=== PATIENT | female | born 1955 | race Caucasian/White ===

== ENCOUNTER 2018-05-20 11:17 | Emergency (ER) | payer BC ==
[2018-05-20 11:40] VITALS: BP 152/84
--- NOTE | 2018-05-20 13:07 | EDM.PDOC ---
ED HPI GENERAL MEDICAL PROBLEM - General Chief Complaint: Back Pain or Injury Stated Complaint: R HIP AND THIGH PAIN Time Seen by Provider: 05/20/18 11:46 Source of Information: Reports: Patient, Old Records, RN Notes Reviewed History Limitations: Reports: No Limitations - History of Present Illness INITIAL COMMENTS - FREE TEXT/NARRATIVE: Patient is a 62 year old female who presents to the ED for the evaluation of right hip/thigh pain. She states that this has been present since March of 2018. She denies any sort of trauma to the right hip. She was seen in [facility] today for a pre-op carpal tunnel surgery workup but was deferred to ED due to increasing hip pain. She states that she is able to bear weight and walk , but this is painful to do so. She notes that she has chronic lower back problems for which she receives dexamethasone shots, the last she received was . This did help the pain in the back, but has not helped much for the hip pain. She has been taking 2 tabs of tylenol, the last she took of this was at 8AM this morning. She states that this does help as well, but only for a few hours. She has used some hydrocodone she has had from previous surgeries, and this provides limited relief as well. She would rate her pain at a 10/10 today. She does have a walker at home and does use a cane for ambulation as well. She has extensive musculoskeletal surgery history that includes 3 separate back surgeries and knee replacement. She notes that most of the pain is her right hip joint, but does have some pain that radiates down her right thigh. She notes this to be sharp in nature. Pt is under the care of Dr. Jenni Us. Treatments CLINIC CLERK: Reports: Other (see below) Other Treatments CLINIC CLERK: tylneol about 0800 x 2 tabs ES Right Hip Pain Score (Numeric/FACES): 10 - Related Data Allergies Allergy/AdvReac Type Severity Reaction Status Date / Time atorvastatin calcium Allergy Intermediate Rash Verified 09/09/15 14:35 [From Lipitor] furosemide [From Lasix] Allergy Intermediate Rash Verified 09/09/15 14:35 simvastatin Allergy Intermediate Rash Verified 09/09/15 14:35 triamcinolone Allergy Intermediate Rash Verified 09/09/15 14:35 hydrochlorothiazide Allergy Mild Rash Verified 09/09/15 14:35 cat dander Allergy Bronchospas Verified 11/09/17 11:53 ms garcianone Allergy Rash Verified 11/09/17 11:55 Home Meds: Home Meds Albuterol Sulfate [Proair Respiclick] 90 mcg IH Q6H PRN 09/05/15 [History] Levothyroxine Sodium 88 mcg PO ACBREAKFAST 09/05/15 [History] Omeprazole 20 mg PO DAILY 09/05/15 [History] amLODIPine Besylate [Amlodipine Besylate] 10 mg PO DAILY 09/05/15 [History] Betamethasone Dipropionate 15 gm TP BID PRN 09/06/15 [History] Mometasone Furoate 15 gm TP BID PRN 09/06/15 [History] Cyclobenzaprine [Flexeril] 10 mg PO TID PRN #40 tablet 09/11/15 [Rx] Acetaminophen [Tylenol Extra Strength] 1,000 mg PO BID 05/20/18 [History] Acetaminophen/HYDROcodone [Seaford 325-5 MG] 1 tab PO Q6H PRN #28 tablet 05/20/18 [Rx] Betamethasone/Propylene Glyc [Diprolene AF 0.05%] 1 applicful TOP ASDIRECTED PRN 05/20/18 [History] Ezetimibe [Zetia] 10 mg PO BEDTIME 05/20/18 [History] Fluticasone/Salmeterol [Advair 100-50] 1 puff INH BID 05/20/18 [History] Irbesartan [Avapro] 150 mg PO DAILY 05/20/18 [History] Loperamide HCl [Imodium A-D] 2 mg PO ASDIRECTED 05/20/18 [History] Silver Sulfadiazine [Silvadene 1% Cream 20 GM] 1 applic TOP BID 05/20/18 [ History] predniSONE 20 mg PO ASDIRECTED #15 tab 05/20/18 [Rx] tiZANidine HCl [Zanaflex] 2 mg PO BEDTIME 05/20/18 [History] Past Medical History Cardiovascular History: Reports: High Cholesterol, Hypertension Respiratory History: Reports: Asthma, Sleep Apnea Gastrointestinal History: Reports: GERD Musculoskeletal History: Reports: Back Pain, Chronic Neurological History: Reports: Neuropathy, Peripheral, Other (See Below) Other Neuro History: parasthesia Endocrine/Metabolic History: Reports: Hypothyroidism, Osteopenia, Vitamin D Deficiency Hematologic History: Reports: Other (See Below) Other Hematologic History: leukocytosis Dermatologic History: Reports: Eczema - Past Surgical History Neurological Surgical History: Reports: C-Spine, Lumbar Spine, Spinal Fusion Musculoskeletal Surgical History: Reports: Carpal Tunnel, Knee Replacement, Other (See Below) Other Musculoskeletal Surgeries/Procedures:: back surgery several times; goes to pain clinic for injections to her back Social & Family History - Tobacco Use Smoking Status *Q: Never Smoker - Caffeine Use Caffeine Use: Reports: Soda ED ROS GENERAL - Review of Systems Review Of Systems: See Below Constitutional: Denies: Fever, Chills, Weakness, Fatigue HEENT: Reports: No Symptoms Respiratory: Reports: No Symptoms Cardiovascular: Reports: No Symptoms Endocrine: Reports: No Symptoms GI/Abdominal: Reports: No Symptoms : Reports: No Symptoms Musculoskeletal: Reports: Leg Pain (right anterior thigh), Joint Pain (right hip ). Denies: Foot Pain, Muscle Pain, Muscle Stiffness Skin: Reports: No Symptoms Neurological: Reports: Numbness (to bilateral feet, due to prior surgeries). Denies: Tingling, Difficulty Walking, Gait Disturbance Psychiatric: Reports: No Symptoms Hematologic/Lymphatic: Reports: No Symptoms Immunologic: Reports: No Symptoms ED EXAM,LOWER BACK PAIN/INJURY - Physical Exam Exam: See Below Exam Limited By: No Limitations General Appearance: Alert, WD/WN, Mild Distress (pt appears to be in mild discomfort due to hip pain, she does wince with the slightest movement.) Ears: Normal External Exam Nose: Normal Inspection Throat/Mouth: Normal Inspection, Normal Oropharynx Head: Atraumatic, Normocephalic Neck: Normal Inspection Respiratory/Chest: No Respiratory Distress, Lungs Clear, Normal Breath Sounds, No Accessory Muscle Use, Chest Non-Tender Cardiovascular: Normal Peripheral Pulses, Regular Rate, Rhythm, No Murmur GI/Abdominal: Normal Bowel Sounds, Soft, Non-Tender, No Distention Back Exam: Normal Inspection. No: Muscle Spasm Extremities: Normal Inspection, Non-Tender (cannot appreciate any tenderness to deep palpation, she has pain with active ROM), No Pedal Edema, Normal Capillary Refill, Limited Range of Motion (limited ROM of right leg and hip due to pain) Neurological: Alert, Normal Mood/Affect, Normal Dorsiflexion, Normal Plantar Flexion, Normal Reflexes, Oriented x 3, Abnormal Gait (limping d/t pain, does use cane with ambulation) Skin Exam: Warm, Dry, Intact, Normal Color, Rash (small rash noted to right upper thigh, pt states that she was using some heating cream for pain relief, and Dr. Us is aware of this rash.) Course - Vital Signs Last Recorded V/S: Last Vital Signs Temp 97.8 F 05/20/18 11:37 Pulse 78 05/20/18 11:37 Resp 20 05/20/18 11:37 BP 152/84 H 05/20/18 11:37 Pulse Ox 100 05/20/18 11:37 - Orders/Labs/Meds Orders: Active Orders 24 hr Category Date Time Status CULTURE BLOOD [BC] Stat Lab 05/20/18 11:48 Ordered CULTURE BLOOD [BC] Stat Lab 05/20/18 11:48 Ordered Blood Culture x2 Reflex Set [OM.PC] Stat Oth 05/20/18 11:48 Ordered Labs: Laboratory Tests 05/20/18 05/20/18 05/20/18 Range/Units 12:00 12:00 12:00 WBC 10.33 H (3.98-10.04) K/mm3 RBC 4.08 (3.98-5.22) M/mm3 Hgb 12.8 (11.2-15.7) gm/L Hct 41.1 (34.1-44.9) % MCV 100.7 H (79.4-94.8) fl MCH 31.4 (25.6-32.2) pg MCHC 31.1 L (32.2-35.5) g/dl RDW Std Deviation 47.6 H (36.4-46.3) fL Plt Count 220 (182-369) K/mm3 MPV 11.6 (9.4-12.3) fl Neutrophils % (Manual) 80 H (40-60) % Band Neutrophils % 0 (0-10) % Lymphocytes % (Manual) 17 L (20-40) % Atypical Lymphs % 0 % Monocytes % (Manual) 2 (2-10) % Eosinophils % (Manual) 1 (0.7-5.8) % Basophils % (Manual) 0 L (0.1-1.2) Platelet Estimate Adequate Poikilocytosis 1+ slight Anisocytosis 2+ moderate RBC Morph Comment Not Reportable ESR 21 H (0-20) mm/hr Uric Acid 5.1 (2.6-6.0) mg/dL C-Reactive Protein 0.2 (<1.0) mg/dL Meds: Medications Discontinued Medications Generic Name Dose Route Start Last Admin Trade Name Freq PRN Reason Stop Dose Admin Ketorolac Tromethamine 30 mg 05/20/18 13:31 05/20/18 13:51 Toradol IM 05/20/18 13:32 30 mg ONETIME ONE Administration - Re-Assessments/Exams Free Text/Narrative Re-Assessment/Exam: 05/20/18 13:20 Pt presents to the ED for the evaluation of right hip pain. Dr. Us and Yvonne were worried about a possible septic hip. The patient was afebrile upon initial exam. Have ordered CBC, CRP, sed rate, uric acid, blood cultures x 2, and R hip x-ray for further evaluation. Upon reading the patient's chart from today's visit at [facility], she is scheduled with Dr. Weaver for further evaluation with a PT and orthopedics referral discussed at that visit. This is likely due to degenerative change, but will wait for lab results for confirmation. Her x-ray appears to show the right hip being [id number] appearance, no obvious acute fracture was appreciated by myself or Dr. Benton, official radiology read is pending. 05/20/18 13:45 Most of the labs are back and are not impressive for a septic joint, her WBC is mildly elevated at 10.3, uric acid is 5.1, CRP is 0.2, and sed rate is mildly elevated at 21. Official radiology read does not demonstrate any acute fracture or abnormality. Departure - Departure Time of Disposition: 14:46 Disposition: Home, Self-Care 01 Condition: Fair Clinical Impression: Right hip pain - Discharge Information *PRESCRIPTION DRUG MONITORING PROGRAM REVIEWED*: No *COPY OF PRESCRIPTION DRUG MONITORING REPORT IN PATIENT DARLEEN: No Prescriptions: Acetaminophen/HYDROcodone [Seaford 325-5 MG] 1 tab PO Q6H PRN #28 tablet PRN Reason: Pain predniSONE 20 mg PO ASDIRECTED #15 tab Instructions: Pain Medicine Instructions, [id number], Joint Pain, Easy-to- Read Referrals: Jenni Us MD [Primary Care Provider] - Forms: ED Department Discharge Additional Instructions: You have been evaluated in the ED for your right hip pain Your x-ray demonstrated no acute fracture or abnormality. Your hip joint appears to have degenerative changes, which can cause your pain. Your labs do not demonstrate any infection in the right hip. Please use ice/heat as tolerated to the affected area. You may take tylenol 500 mg every 6 hours as needed for pain relief. Please do so until you have a tolerable level of pain with activity. Do not exceed 4000mg tylenol in one day. Please take the Hydrocodone/tylenol 5/325 tablets every 6 hours as needed for pain. Please start taking Miralax daily to try to prevent constipation from the pain medications. Please take the prednisone tablets as directed 1 tab (20mg) twice daily for 5 days and 1 tab (20mg) once daily for 5 days. Please keep your appointment with Dr. Weaver on Jun 06 for further evaluation of your right hip. Please return to ED if your symptoms should change or worsen. - My Orders Last 24 Hours: My Active Orders 05/20/18 11:48 CULTURE BLOOD [BC] Stat CULTURE BLOOD [BC] Stat Blood Culture x2 Reflex Set [OM.PC] Stat - Assessment/Plan Last 24 Hours: My Active Orders 05/20/18 11:48 CULTURE BLOOD [BC] Stat CULTURE BLOOD [BC] Stat Blood Culture x2 Reflex Set [OM.PC] Stat
--- NOTE | 2018-05-20 13:25 | CR ---
Right hip: AP and frog-leg lateral views of the right hip were obtained. Comparison: No prior hip exam. Joint space appears preserved. No fracture or other abnormality is appreciated. Impression: 1. No abnormality is appreciated on two-view right hip exam. Diagnostic code #1
[2018-05-20] MEDS ORDERED: Ketorolac 30 MG/ML SDV IM ONE (13:31)
== END 2018-05-20 15:10 | disposition home or self-care (01) ==
LOC: JD.ED 11:17
DX: M25.551 Pain in right hip (principal); I10 Essential (primary) hypertension; Z88.8 Allergy status to other drugs, medicaments and biological substances; Z79.899 Other long term (current) drug therapy
CPT/HCPCS: 36415; 73502; 84550; 85007; 85027; 85652; 86140; 87040; 96372; 99284; J1885; 99283

== ENCOUNTER 2019-12-30 19:45 | Emergency (ER) | payer MEDICARE, BC ==
[2019-12-30 20:19] VITALS: BP 155/89
--- NOTE | 2019-12-30 20:54 | EDM.PDOC ---
ED HPI GENERAL MEDICAL PROBLEM - General Chief Complaint: Respiratory Problem Stated Complaint: SOB/COUGH Time Seen by Provider: 12/30/19 20:32 Source of Information: Reports: Patient History Limitations: Reports: No Limitations - History of Present Illness INITIAL COMMENTS - FREE TEXT/NARRATIVE: This is a 64-year-old female. About 7 days ago she had cold-like symptoms with a runny nose. She also had a mild cough but she is noted over the last 7 days increasing shortness of breath having to use her inhaler much more frequently. She does have a history of asthma in the past. had COVID about a month ago but he has recovered. She does not use oxygen at home. She notices at nighttime when she uses her CPAP that she wheezes and just walking from the lobby to the room she got short of breath and she notices wheezing. Nausea vomiting or diarrhea, no fatigue, no sore throat and no fever. She comes to the ER for evaluation. She states she has had to be on steroids in the past due to her breathing. - Related Data Allergies Allergy/AdvReac Type Severity Reaction Status Date / Time atorvastatin calcium Allergy Severe Rash Verified 12/30/19 20:12 [From Lipitor] cat dander Allergy Severe Bronchospas Verified 12/30/19 20:12 ms furosemide [From Lasix] Allergy Severe Rash Verified 12/30/19 20:12 hydrochlorothiazide Allergy Severe Rash Verified 12/30/19 20:12 simvastatin Allergy Severe Rash Verified 12/30/19 20:12 triamcinolone Allergy Severe Rash Verified 12/30/19 20:12 ubidecarenone Allergy Severe Rash Verified 12/30/19 20:12 Home Meds: Home Meds Albuterol Sulfate [Proair Respiclick] 90 mcg IH Q6H PRN 09/05/15 [History] Levothyroxine Sodium 88 mcg PO ACBREAKFAST 09/05/15 [History] Omeprazole 20 mg PO ASDIRECTED 09/05/15 [History] amLODIPine Besylate [Amlodipine Besylate] 10 mg PO DAILY 09/05/15 [History] Betamethasone Dipropionate 15 gm TP BID PRN 09/06/15 [History] Mometasone Furoate 15 gm TP BID PRN 09/06/15 [History] Cyclobenzaprine [Flexeril] 10 mg PO TID PRN #40 tablet 09/11/15 [Rx] Acetaminophen [Tylenol Extra Strength] 1,000 mg PO BID 05/20/18 [History] Acetaminophen/HYDROcodone [Newborn 325-5 MG] 1 tab PO Q6H PRN #28 tablet 05/20/18 [Rx] Betamethasone/Propylene Glyc [Diprolene AF 0.05%] 1 applicful TOP ASDIRECTED PRN 05/20/18 [History] Ezetimibe [Zetia] 10 mg PO BEDTIME 05/20/18 [History] Fluticasone/Salmeterol [Advair 100-50] 1 puff INH BID 05/20/18 [History] Irbesartan [Avapro] 150 mg PO DAILY 05/20/18 [History] Loperamide HCl [Imodium A-D] 2 mg PO ASDIRECTED 05/20/18 [History] Silver Sulfadiazine [Silvadene 1% Cream 20 GM] 1 applic TOP BID 05/20/18 [History] predniSONE 20 mg PO ASDIRECTED #15 tab 05/20/18 [Rx] tiZANidine HCl [Zanaflex] 2 mg PO BEDTIME 05/20/18 [History] dexAMETHasone [Decadron] 8 mg PO BID #4 tablet 12/31/19 [Rx] Past Medical History Cardiovascular History: Reports: High Cholesterol, Hypertension Respiratory History: Reports: Asthma, Sleep Apnea Other Respiratory History: uses c-pap Gastrointestinal History: Reports: GERD Musculoskeletal History: Reports: Back Pain, Chronic Neurological History: Reports: Neuropathy, Peripheral, Other (See Below) Other Neuro History: parasthesia Endocrine/Metabolic History: Reports: Hypothyroidism, Osteopenia, Vitamin D Deficiency Hematologic History: Reports: Other (See Below) Other Hematologic History: leukocytosis Dermatologic History: Reports: Eczema - Past Surgical History HEENT Surgical History: Reports: Cataract Surgery Neurological Surgical History: Reports: C-Spine, Lumbar Spine, Spinal Fusion Musculoskeletal Surgical History: Reports: Carpal Tunnel, Knee Replacement, Other (See Below) Other Musculoskeletal Surgeries/Procedures:: back surgery several times; goes to pain clinic for injections to her back Social & Family History - Tobacco Use Smoking Status *Q: Never Smoker - Caffeine Use Caffeine Use: Reports: Soda - Recreational Drug Use Recreational Drug Use: No ED ROS GENERAL - Review of Systems Review Of Systems: See Below Constitutional: Denies: Fever, Chills, Fatigue HEENT: Reports: No Symptoms Respiratory: Reports: Shortness of Breath, Wheezing, Cough Cardiovascular: Denies: Chest Pain Endocrine: Reports: No Symptoms GI/Abdominal: Denies: Abdominal Pain, Diarrhea, Nausea, Vomiting : Reports: No Symptoms Musculoskeletal: Reports: Other (She has left foot drop from her previous knee surgery) Skin: Reports: No Symptoms Neurological: Reports: No Symptoms Psychiatric: Reports: No Symptoms Hematologic/Lymphatic: Reports: No Symptoms ED EXAM, GENERAL - Physical Exam Exam: See Below Exam Limited By: No Limitations General Appearance: Alert, WD/WN, No Apparent Distress Eye Exam: Bilateral Eye: Normal Inspection Ears: Normal External Exam Nose: Normal Inspection Throat/Mouth: Normal Lips, Normal Voice, No Airway Compromise, Other (She talks she does not appear to be short of breath but when she coughs then she gets short of breath) Head: Normocephalic Neck: Supple Respiratory/Chest: No Respiratory Distress, Other (Does have some faint expiratory wheezing noted but no prolonged expiratory phase noted) Cardiovascular: Regular Rate, Rhythm, No Murmur GI/Abdominal: Non-Tender Back Exam: Full Range of Motion Extremities: Normal Inspection, Other (Left foot has a splint on it because she has left foot drop, no edema noted) Neurological: Alert, Oriented Psychiatric: Normal Affect, Normal Mood Skin Exam: Warm, Dry Course - Vital Signs Last Recorded V/S: Last Vital Signs Temp 98.9 F 12/30/19 20:16 Pulse 78 12/31/19 03:11 Resp 18 12/31/19 03:11 BP 155/89 H 12/30/19 20:16 Pulse Ox 95 12/31/19 03:11 - Orders/Labs/Meds Labs: Laboratory Tests 12/30/19 12/30/19 12/30/19 Range/Units 21:00 21:10 21:10 WBC 9.35 (3.98-10.04) K/mm3 RBC 3.97 L (3.98-5.22) M/mm3 Hgb 12.8 (11.2-15.7) gm/dl Hct 39.7 (34.1-44.9) % MCV 100.0 H (79.4-94.8) fl MCH 32.2 (25.6-32.2) pg MCHC 32.2 (32.2-35.5) g/dl RDW Std Deviation 51.0 H (36.4-46.3) fL Plt Count 234 (182-369) K/mm3 MPV 11.3 (9.4-12.3) fl Neut % (Auto) 70.7 (34.0-71.1) % Lymph % (Auto) 16.0 L (19.3-51.7) % Arthur % (Auto) 6.5 (4.7-12.5) % Eos % (Auto) 6.0 H (0.7-5.8) Baso % (Auto) 0.4 (0.1-1.2) % Neut # (Auto) 6.60 H (1.56-6.13) K/mm3 Lymph # (Auto) 1.50 (1.18-3.74) K/mm3 Arthur # (Auto) 0.61 H (0.24-0.36) K/mm3 Eos # (Auto) 0.56 H (0.04-0.36) K/mm3 Baso # (Auto) 0.04 (0.01-0.08) K/mm3 Puncture Site ABG pH (7.35-7.45) ABG pCO2 (35.0-45.0) mmHg ABG pO2 (80.0-100.0) mmHg ABG HCO3 (22.0-26.0) meq/L ABG O2 Saturation (96.0-97.0) % ABG Base Excess (-2-2.0) Diego Test A-a Gradient mmHg O2 Delivery Device FiO2 (21.00-100.00) % Sodium 134 L (136-145) mEq/L Potassium 3.6 (3.5-5.1) mEq/L Chloride 97 L (98-107) mEq/L Carbon Dioxide 26 (21-32) mEq/L Anion Gap 14.6 (5-15) BUN 6 L (7-18) mg/dL Creatinine 0.7 (0.55-1.02) mg/dL Est Cr Clr Drug Dosing 59.09 mL/min Estimated GFR (MDRD) > 60 (>60) mL/min BUN/Creatinine Ratio 8.6 L (14-18) Glucose 128 H (80-115) mg/dL Calcium 8.9 (8.5-10.1) mg/dL Ferritin 376 H (8-252) ng/ml Total Bilirubin 0.7 (0.2-1.0) mg/dL AST 23 (15-37) U/L ALT 43 (14-59) U/L Alkaline Phosphatase 62 (46-116) U/L Lactate Dehydrogenase 237 H (81-234) U/L C-Reactive Protein 0.8 (<1.0) mg/dL Total Protein 7.1 (6.4-8.2) g/dl Albumin 3.7 (3.4-5.0) g/dl Globulin 3.4 gm/dL Albumin/Globulin Ratio 1.1 (1-2) SARS-CoV-2 RNA (MARICEL) (NEGATIVE) 12/30/19 12/30/19 Range/Units 21:17 23:15 WBC (3.98-10.04) K/mm3 RBC (3.98-5.22) M/mm3 Hgb (11.2-15.7) gm/dl Hct (34.1-44.9) % MCV (79.4-94.8) fl MCH (25.6-32.2) pg MCHC (32.2-35.5) g/dl RDW Std Deviation (36.4-46.3) fL Plt Count (182-369) K/mm3 MPV (9.4-12.3) fl Neut % (Auto) (34.0-71.1) % Lymph % (Auto) (19.3-51.7) % Arthur % (Auto) (4.7-12.5) % Eos % (Auto) (0.7-5.8) Baso % (Auto) (0.1-1.2) % Neut # (Auto) (1.56-6.13) K/mm3 Lymph # (Auto) (1.18-3.74) K/mm3 Arthur # (Auto) (0.24-0.36) K/mm3 Eos # (Auto) (0.04-0.36) K/mm3 Baso # (Auto) (0.01-0.08) K/mm3 Puncture Site Rt radial ABG pH 7.40 (7.35-7.45) ABG pCO2 41.8 (35.0-45.0) mmHg ABG pO2 56.0 L (80.0-100.0) mmHg ABG HCO3 25.6 (22.0-26.0) meq/L ABG O2 Saturation 86.9 L (96.0-97.0) % ABG Base Excess 1.3 (-2-2.0) Diego Test Positive A-a Gradient 42 mmHg O2 Delivery Device Room air FiO2 21.00 (21.00-100.00) % Sodium (136-145) mEq/L Potassium (3.5-5.1) mEq/L Chloride (98-107) mEq/L Carbon Dioxide (21-32) mEq/L Anion Gap (5-15) BUN (7-18) mg/dL Creatinine (0.55-1.02) mg/dL Est Cr Clr Drug Dosing mL/min Estimated GFR (MDRD) (>60) mL/min BUN/Creatinine Ratio (14-18) Glucose (80-115) mg/dL Calcium (8.5-10.1) mg/dL Ferritin (8-252) ng/ml Total Bilirubin (0.2-1.0) mg/dL AST (15-37) U/L ALT (14-59) U/L Alkaline Phosphatase (46-116) U/L Lactate Dehydrogenase (81-234) U/L C-Reactive Protein (<1.0) mg/dL Total Protein (6.4-8.2) g/dl Albumin (3.4-5.0) g/dl Globulin gm/dL Albumin/Globulin Ratio (1-2) SARS-CoV-2 RNA (MARICEL) Positive H (NEGATIVE) Meds: Medications Discontinued Medications Generic Name Dose Route Start Last Admin Trade Name Luke PRN Reason Stop Dose Admin Albuterol 0 gm 12/30/19 22:37 12/30/19 23:15 Proventil Hfa INH 12/30/19 22:38 2 puff ONETIME ONE Administration - Radiology Interpretation Free Text/Narrative:: Chest x-ray does not show any acute abnormalities - Re-Assessments/Exams Free Text/Narrative Re-Assessment/Exam: 12/31/19 01:03 The blood gas on room air showed a PO2 of 56 with a pulse ox of 87. With 2 L her pulse ox is 95%. I am going to send her home with a portable oxygen concentrator and keep it at 2 L at home. I am also going to put her on some dexamethasone 8 mg twice a day for 2 days and she will be using that inhaler with a spacer to help with the wheezing. I did caution her that she could still get worse and if that is the case she needs to return to the ER. She states she understands. Talked about COVID symptoms and that antibiotics do not help so no antibiotics will be given. 12/31/19 01:08 Please note that the ferritin was mildly elevated but the LDH and the C-reactive protein were normal. Her platelet count was normal. All her liver enzymes were normal. 12/31/19 01:28 I have arranged for her to get continuous oxygen concentrator at home and she is to run her to 2 L/min. I spoke to the patient and the picked up the machine and she is ready for discharge. Departure - Departure Time of Disposition: 01:04 Disposition: Home, Self-Care 01 Condition: Fair Clinical Impression: Lab test positive for detection of COVID-19 virus, Wheezing, Hypoxemia Exacerbation of asthma Qualifiers: Asthma severity: mild Asthma persistence: persistent Qualified Code(s): J45.31 - Mild persistent asthma with (acute) exacerbation - Discharge Information *PRESCRIPTION DRUG MONITORING PROGRAM REVIEWED*: Not Applicable *COPY OF PRESCRIPTION DRUG MONITORING REPORT IN PATIENT DARLEEN: Not Applicable Prescriptions: dexAMETHasone [Decadron] 8 mg PO BID #4 tablet Instructions: COVID-19 Frequently Asked Questions Referrals: Jenni Us MD [Primary Care Provider] - Forms: ED Department Discharge Additional Instructions: You have COVID infection, antibiotics do not help, take the dexamethasone twice a day for 2 days starting tomorrow morning or tomorrow evening whenever you get the medicine, stay on the 2 L of continuous oxygen at home, call your doctor and let her know your status that you are COVID positive, use the inhaler with a spacer as needed, if your symptoms seem to worsen you will need to return to the ER Sepsis Event Note (ED) - Evaluation Sepsis Screening Result: No Definite Risk - Focused Exam Vital Signs: Vital Signs Temp Pulse Resp BP Pulse Ox Pulse Ox 12/31/19 03:11 78 18 95 12/30/19 23:18 86 L 12/30/19 20:16 98.9 F 81 20 155/89 H 89 L
--- NOTE | 2019-12-30 21:37 | CR ---
Chest: Portable view of the chest was obtained. Comparison: No prior chest imaging is available. Heart size slightly enlarged but accentuated by portable technique. Upper mediastinum within normal limits for portable technique. Lungs are clear with no acute parenchymal change. Bony structures are grossly intact. Impression: 1. Nothing acute is seen on portable chest x-ray. Diagnostic code #1 This report was dictated in MDT
[2019-12-30] MEDS ORDERED: Albuterol 6.7 GM Inhaler INH ONE (22:37)
[2019-12-31 03:12] VITALS: PULSE 78
== END 2019-12-31 03:00 | disposition home or self-care (01) ==
LOC: JD.ED 19:45
DX: U07.1 COVID-19 (principal); J45.31 Mild persistent asthma with (acute) exacerbation; R09.02 Hypoxemia; I10 Essential (primary) hypertension; E03.9 Hypothyroidism, unspecified; Z88.8 Allergy status to other drugs, medicaments and biological substances; Z91.048 Other nonmedicinal substance allergy status; Z79.899 Other long term (current) drug therapy
CPT/HCPCS: 36415; 36600; 71045; 80053; 82728; 82803; 83615; 85025; 86140; 94640; 99285; A9270; U0002; 99283

== ENCOUNTER 2021-11-26 08:02 | Day surgery (SDC) | payer MEDICARE, BC ==
[~2021-11-26 08:02] MED LIST: Acetaminophen 325 MG Tab PO SCH; Albuterol 0.083% 2.5 MG/3 ML Neb Soln NEB SCH; Lactated Ringers 1,000 ML IV SCH; Lidocaine 1%/Sod Bicarbonate in NS 8.4% 1 ML Syringe IDERM PRN; Morphine 8 MG, EPINEPHrine 0.3 MG, Cefuroxime 750 MG, Ketorolac 30 MG, Sodium Chloride ... PRN; Pregabalin 25 MG Cap PO SCH; Sodium Chloride 0.9% 10 ML Syringe FLUSH PRN; Sodium Chloride 0.9% 10 ML Syringe FLUSH SCH; oxyCODONE ER 10 MG TAB.ER PO SCH
[2021-11-26] MEDS ORDERED: Vancomycin 1 GM SDV ONE (08:33)
[2021-11-26] MEDS ORDERED: Pregabalin 25 MG Cap PO SCH (09:00)
[2021-11-26] MEDS ORDERED: Lidocaine 1% 4 ML ONE (09:31)
[2021-11-26] MEDS ORDERED: Propofol 200 MG/20 ML SDV ONE (09:31)
[2021-11-26] MEDS ORDERED: Rocuronium 50 MG/5 ML Vial ONE (09:31)
[2021-11-26] MEDS ORDERED: Midazolam 1 MG/ML 2 ML SDV ONE (09:32)
[2021-11-26] MEDS ORDERED: fentaNYL 100 MCG/2 ML SDV ONE (09:32)
[2021-11-26] MEDS ORDERED: ePHEDrine 50 MG/ML SDV ONE (10:00)
[2021-11-26] MEDS ORDERED: ceFAZolin 2 GM Vial ONE (10:00)
[2021-11-26] MEDS ORDERED: Phenylephrine HCl In 0.9% NaCl 1 MG/10 ML Vial ONE (10:00)
[2021-11-26] MEDS ORDERED: Sugammadex Sodium 200 MG/2 ML VIAL ONE (10:36)
[2021-11-26] MEDS ORDERED: fentaNYL 100 MCG/2 ML SDV IVPUSH PRN (11:00)
[2021-11-26] MEDS ORDERED: HYDROmorphone 0.5 MG/0.5 ML Syringe IVPUSH PRN (11:00)
[2021-11-26] MEDS ORDERED: Ondansetron 4 MG/2 ML SDV IVPUSH PRN (11:00)
[2021-11-26] MEDS ORDERED: Bupivacaine 0.25% 10 ML SDV ONE (11:10)
[2021-11-26] MEDS ORDERED: Bupivacaine 0.25%/EPINEPHrine 1:200,000 30 ML SDV ONE (11:11)
[2021-11-26] MEDS ORDERED: Ropivacaine 0.5% 5 MG/ML 30 ML SDV ONE (12:17)
[2021-11-26] MEDS ORDERED: EPINEPHrine 1 MG/ML SDV ONE (12:17)
[2021-11-26] MEDS ORDERED: Acetaminophen/HYDROcodone 325-5 MG Tab PO PRN (13:07)
[2021-11-26 15:17] VITALS: BP 117/67; PULSE 78
== END 2021-11-26 15:06 | disposition home or self-care (01) ==
LOC: JD.SDS 08:02
PROVIDERS: ATTEND Orthopaedic Surgery
DX: M17.11 Unilateral primary osteoarthritis, right knee (principal); I10 Essential (primary) hypertension; E78.00 Pure hypercholesterolemia, unspecified; E03.4 Atrophy of thyroid (acquired); J45.20 Mild intermittent asthma, uncomplicated; G47.33 Obstructive sleep apnea (adult) (pediatric); R73.9 Hyperglycemia, unspecified; K21.9 Gastro-esophageal reflux disease without esophagitis; Z79.51 Long term (current) use of inhaled steroids; Z79.899 Other long term (current) drug therapy; Z79.02 Long term (current) use of antithrombotics/antiplatelets; Z88.8 Allergy status to other drugs, medicaments and biological substances; Z91.048 Other nonmedicinal substance allergy status; Z88.2 Allergy status to sulfonamides; Z98.890 Other specified postprocedural states; Z90.710 Acquired absence of both cervix and uterus; Z79.82 Long term (current) use of aspirin; Z79.890 Hormone replacement therapy; Z68.41 Body mass index [BMI] 40.0-44.9, adult; Z86.16 Personal history of COVID-19; Z98.1 Arthrodesis status
CPT/HCPCS: 0055T; 27447; 73560; 97110; 97116; 97161; A9270; C1713; C1776; J0171; J0690; J0697; J1885; J2250; J2270; J2704; J2795; J3010; J3370; J3490; J7120; 01402; 64447; 76942

== ENCOUNTER 2021-12-01 12:46 | Emergency (ER) | payer MEDICARE, BC ==
[2021-12-01 15:29] VITALS: BP 128/51; PULSE 80
== END 2021-12-01 15:51 | disposition home or self-care (01) ==
LOC: JD.ED 12:46
DX: M96.830 Postprocedural hemorrhage of a musculoskeletal structure following a musculoskeletal system procedure (principal); J45.909 Unspecified asthma, uncomplicated; K21.9 Gastro-esophageal reflux disease without esophagitis; I10 Essential (primary) hypertension; Z91.048 Other nonmedicinal substance allergy status; Z88.8 Allergy status to other drugs, medicaments and biological substances; Z79.899 Other long term (current) drug therapy; Z86.16 Personal history of COVID-19; Z90.710 Acquired absence of both cervix and uterus
CPT/HCPCS: 99282; 99283

== ENCOUNTER 2023-09-22 17:43 | Observation (INO) | payer MEDICARE, BC ==
[2023-09-22] MEDS: Sodium Chloride 0.9% 10 ML Syringe FLUSH PRN (18:51)
[2023-09-22 19:37] LABS: BASOPHILS ABSOLUTE AUTO 0.1 K/mm3 (0.0-0.2); BASOPHILS PERCENT AUTO 0.6 % (0.0-1.0); EOSINOPHILS ABSOLUTE AUTO 0.2 K/mm3 (0.0-0.4); EOSINOPHILS PERCENT AUTO 1.7 % (0.0-6.0); HEMATOCRIT 44.7 % (37.0-47.0); HEMOGLOBIN 14.6 gm/dl (12.0-16.0); IMMATURE GRAN ABSOLUTE AUTO 0.05 K/mm3 (0.00-0.05); IMMATURE GRAN PERCENT AUTO 0.4 % (0.0-0.4); LYMPHOCYTES ABSOLUTE AUTO 1.8 K/mm3 (1.0-4.8); LYMPHOCYTES PERCENT AUTO 13.9 % (24.0-44.0); MEAN CORPUSCULAR HEMOGLOBIN 30.4 pg (28.0-32.0); MEAN CORPUSCULAR HGB CONC 32.7 g/dl (32.0-36.0); MEAN CORPUSCULAR VOLUME 92.9 fl (83.0-99.0); MEAN PLATELET VOLUME 12.3 fl (9.4-12.3); MONOCYTES ABSOLUTE AUTO 1.2 K/mm3 (0.0-0.8); MONOCYTES PERCENT AUTO 9.8 % (0.0-8.0); NEUTROPHILS ABSOLUTE AUTO 9.3 K/mm3 (1.8-7.7); NEUTROPHILS PERCENT AUTO 73.6 % (41.0-71.0); PLATELET COUNT,PLT 236 K/mm3 (150-400); RED BLOOD CELL COUNT 4.81 M/mm3 (4.10-5.30); WHITE BLOOD CELL COUNT,WBC 12.63 K/mm3 (3.9-11.3)
[2023-09-22 19:48] LABS: A/G RATIO 1.1 (1-2); ALBUMIN 4.1 g/dl (3.4-5.0); ANION GAP 16.7 (5-15); BILIRUBIN TOTAL 0.8 mg/dL (0.2-1.0); BUN/CREATININE RATIO 11.4 (14-18); CALCIUM 9.6 mg/dL (8.5-10.1); CREATININE 0.7 mg/dL (0.55-1.02); EST CRCL DRUG DOSING (CG) 56.02 mL/min; POTASSIUM,K 3.7 mEq/L (3.5-5.1); PROTEIN TOTAL,TP 7.9 g/dl (6.4-8.2)
[2023-09-22] MEDS ORDERED: Sodium Chloride 0.9% 100 ML IV SCH (20:30)
[2023-09-22] MEDS: Iopamidol 755 Mg/ML 100 ML Bottle IVPUSH ONE (20:41)
[2023-09-22] MEDS: HYDROmorphone 0.5 MG/0.5 ML Syringe IVPUSH ONE (21:11)
[2023-09-22] MEDS ORDERED: cefOXitin 2 GM in Premix Bag 1 BAG IV ONE (22:55)
[2023-09-22] MEDS ORDERED: tiZANidine 4 MG Tab PO PRN (23:19)
[2023-09-22] MEDS ORDERED: DUPILUMAB 300 MG/2 ML SQ SCH (23:30)
[2023-09-23] MEDS: Ondansetron 4 MG/2 ML SDV IVPUSH ONE (00:40)
[2023-09-23] MEDS: HYDROmorphone 0.5 MG/0.5 ML Syringe IVPUSH PRN (01:12)
[2023-09-23] MEDS: Lactated Ringers 1,000 ML IV SCH (01:17)
[2023-09-23] MEDS: cefOXitin 2 GM in Sodium Chloride 0.9% 50 ML IV ONE (01:18)
[2023-09-23] MEDS: Levothyroxine 88 MCG Tab PO SCH (06:04)
[2023-09-23] MEDS ORDERED: Albuterol 6.7 GM Inhaler INH PRN (07:08)
[2023-09-23] MEDS: Acetaminophen 325 MG Tab PO PRN (08:19)
[2023-09-23] MEDS ORDERED: Cetirizine 10 MG Tab PO PRN (09:00)
[2023-09-23] MEDS: amLODIPine 10 MG Tab PO SCH (09:35)
[2023-09-23] MEDS: Pantoprazole 40 MG Tab.CR PO SCH (09:35)
[2023-09-23] MEDS: Losartan 50 MG Tab PO SCH (09:35)
[2023-09-23] MEDS ORDERED: Propofol 200 MG/20 ML SDV ONE (13:11)
[2023-09-23] MEDS ORDERED: fentaNYL 250 MCG/5 ML SDV ONE (13:12)
[2023-09-23] MEDS ORDERED: Ondansetron 4 MG/2 ML SDV ONE (13:12)
[2023-09-23] MEDS ORDERED: Midazolam 1 MG/ML 2 ML SDV ONE (13:12)
[2023-09-23] MEDS ORDERED: Rocuronium 50 MG/5 ML Vial ONE (13:12)
[2023-09-23] MEDS ORDERED: Ketorolac 15 MG/ML SDV ONE (13:12)
[2023-09-23] MEDS ORDERED: ceFAZolin 2 GM Vial ONE (13:56)
[2023-09-23] MEDS ORDERED: Lidocaine 1% 10 ML MDV ONE (13:56)
[2023-09-23] MEDS ORDERED: HYDROmorphone 0.5 MG/0.5 ML Syringe ONE (14:59)
[2023-09-23] MEDS: Bupivacaine 0.5% 30 ML SDV ONE (15:00)
[2023-09-23] MEDS: Lidocaine 1% 20 ML MDV ONE (15:00)
[2023-09-23] MEDS: EPINEPHrine 1 MG/ML SDV ONE (15:00)
[2023-09-23] MEDS ORDERED: Phenylephrine 1% 10 MG/ML SDV ONE (17:37)
[2023-09-23 17:50] VITALS: BP 113/50; PULSE 83
[2023-09-23] MEDS ORDERED: Ezetimibe 10 MG Tab PO SCH (21:00)
== END 2023-09-23 20:30 | disposition home or self-care (01) ==
LOC: JD.ED 17:43 → JD.MS 23:44
PROVIDERS: ADMIT Surgery; ATTEND Surgery
DX: K80.00 Calculus of gallbladder with acute cholecystitis without obstruction (principal); K82.A1 Gangrene of gallbladder in cholecystitis; K42.9 Umbilical hernia without obstruction or gangrene; I10 Essential (primary) hypertension; E78.00 Pure hypercholesterolemia, unspecified; E03.9 Hypothyroidism, unspecified; K21.9 Gastro-esophageal reflux disease without esophagitis; Z79.890 Hormone replacement therapy; Z79.899 Other long term (current) drug therapy; Z88.8 Allergy status to other drugs, medicaments and biological substances
CPT/HCPCS: 36415; 47562; 71046; 71275; 76705; 80053; 84484; 85025; 85379; 93005; 96365; 96375; 96376; 99285; A9270; G0378; J0171; J0665; J0690; J0694; J1170; J1885; J2250; J2371; J2405; J2704; J3010; J3490; J7120; Q9967; 00790; 93010; 96374; 99284

== ENCOUNTER 2023-09-27 08:20 | Emergency (ER) | payer MEDICARE, BC ==
[2023-09-27 09:26] VITALS: BP 147/79; PULSE 64
== END 2023-09-27 09:20 | disposition home or self-care (01) ==
LOC: JD.ED 08:20
DX: L23.3 Allergic contact dermatitis due to drugs in contact with skin (principal); T49.0X5A Adverse effect of local antifungal, anti-infective and anti-inflammatory drugs, initial encounter; I10 Essential (primary) hypertension; K21.9 Gastro-esophageal reflux disease without esophagitis; E03.9 Hypothyroidism, unspecified; E66.9 Obesity, unspecified; Z86.16 Personal history of COVID-19; Z90.710 Acquired absence of both cervix and uterus; Z79.899 Other long term (current) drug therapy; Z79.890 Hormone replacement therapy; Z88.8 Allergy status to other drugs, medicaments and biological substances; Z91.048 Other nonmedicinal substance allergy status; Z68.41 Body mass index [BMI] 40.0-44.9, adult
CPT/HCPCS: 99282

== ENCOUNTER 2024-01-26 10:51 | Day surgery (SDC) | payer MEDICARE, BC ==
[~2024-01-26 10:51] MED LIST changes: -Acetaminophen 325 MG Tab PO SCH; -Albuterol 0.083% 2.5 MG/3 ML Neb Soln NEB SCH; -Lactated Ringers 1,000 ML IV SCH; -Lidocaine 1%/Sod Bicarbonate in NS 8.4% 1 ML Syringe IDERM PRN; -Morphine 8 MG, EPINEPHrine 0.3 MG, Cefuroxime 750 MG, Ketorolac 30 MG, Sodium Chloride ... PRN; +Ondansetron 4 MG/2 ML SDV ONE; -Pregabalin 25 MG Cap PO SCH; +Propofol 200 MG/20 ML SDV ONE; +Rocuronium 50 MG/5 ML Vial ONE; +ceFAZolin 2 GM Vial ONE; +fentaNYL 100 MCG/2 ML SDV ONE; -oxyCODONE ER 10 MG TAB.ER PO SCH
[2024-01-26] MEDS ORDERED: Ketorolac 30 MG/ML SDV ONE (10:55)
[2024-01-26] MEDS ORDERED: HYDROmorphone 0.5 MG/0.5 ML Syringe ONE (11:10)
[2024-01-26] MEDS: Gabapentin 300 MG Cap PO ONE (11:26)
[2024-01-26] MEDS: Acetaminophen 325 MG Tab PO ONE (11:27)
[2024-01-26] MEDS ORDERED: Rocuronium 50 MG/5 ML Vial ONE (11:28)
[2024-01-26] MEDS ORDERED: Sugammadex Sodium 200 MG/2 ML VIAL IV ONE (11:28)
[2024-01-26] MEDS: Lactated Ringers 1,000 ML IV SCH (11:30)
[2024-01-26] MEDS ORDERED: Propofol 200 MG/20 ML SDV ONE (11:34)
[2024-01-26] MEDS: EPINEPHrine 1 MG/ML SDV ONE (11:58)
[2024-01-26] MEDS: Bupivacaine 0.5% 30 ML SDV ONE (11:58)
[2024-01-26] MEDS: Lidocaine 1% with EPINEPHrine 1:100,000 20 ML MDV ONE (11:58)
[2024-01-26] MEDS: Acetaminophen/oxyCODONE 325-5 MG Tab PO PRN (14:15)
[2024-01-26 15:06] VITALS: BP 133/76; PULSE 77
== END 2024-01-26 15:00 | disposition home or self-care (01) ==
LOC: JD.SDS 10:51
PROVIDERS: ATTEND Surgery
DX: K43.2 Incisional hernia without obstruction or gangrene (principal); K42.9 Umbilical hernia without obstruction or gangrene; K66.0 Peritoneal adhesions (postprocedural) (postinfection); I10 Essential (primary) hypertension; G47.30 Sleep apnea, unspecified; E03.9 Hypothyroidism, unspecified; K21.9 Gastro-esophageal reflux disease without esophagitis; E66.9 Obesity, unspecified; J45.909 Unspecified asthma, uncomplicated; Z88.8 Allergy status to other drugs, medicaments and biological substances; Z79.82 Long term (current) use of aspirin; Z91.09 Other allergy status, other than to drugs and biological substances; Z79.899 Other long term (current) drug therapy; Z79.890 Hormone replacement therapy; Z68.30 Body mass index [BMI] 30.0-30.9, adult
CPT/HCPCS: 49593; J0171; J0665; J0690; J1171; J1885; J2405; J2704; J3010; J3490; J7120; A9270-GY

== ENCOUNTER 2024-11-22 12:03 | Day surgery (SDC) | payer MEDICARE, BC ==
[~2024-11-22 12:03] MED LIST changes: -Ondansetron 4 MG/2 ML SDV ONE; -Propofol 200 MG/20 ML SDV ONE; -Rocuronium 50 MG/5 ML Vial ONE; -ceFAZolin 2 GM Vial ONE; -fentaNYL 100 MCG/2 ML SDV ONE
[2024-11-22] MEDS: Lactated Ringers 1,000 ML IV SCH (12:34)
[2024-11-22] MEDS ORDERED: Propofol 200 MG/20 ML SDV ONE ×3 (13:03→14:42)
[2024-11-22 16:07] VITALS: BP 113/55; PULSE 80
== END 2024-11-22 16:03 | disposition home or self-care (01) ==
LOC: JD.SDS 12:03
PROVIDERS: ATTEND Surgery
DX: D12.4 Benign neoplasm of descending colon (principal); D12.1 Benign neoplasm of appendix; D12.3 Benign neoplasm of transverse colon; D12.5 Benign neoplasm of sigmoid colon; K62.5 Hemorrhage of anus and rectum; K29.80 Duodenitis without bleeding; K29.50 Unspecified chronic gastritis without bleeding; K64.8 Other hemorrhoids; K21.9 Gastro-esophageal reflux disease without esophagitis; K64.4 Residual hemorrhoidal skin tags; E78.00 Pure hypercholesterolemia, unspecified; I10 Essential (primary) hypertension; E03.9 Hypothyroidism, unspecified; E66.9 Obesity, unspecified; Z88.8 Allergy status to other drugs, medicaments and biological substances; Z91.09 Other allergy status, other than to drugs and biological substances; Z79.899 Other long term (current) drug therapy; Z79.890 Hormone replacement therapy; Z68.36 Body mass index [BMI] 36.0-36.9, adult
CPT/HCPCS: 43239; 45380; J2704; J7120; 00813; J2003